=== PATIENT | female | born 1940 | race Caucasian/White ===

== ENCOUNTER 2016-07-29 10:19 | Day surgery (SDC) | payer MEDICARE, OTHER, MEDICAID ==
[~2016-07-29 10:19] MED LIST: ALDACTONE25 M1 PO; ASPIR 8181 M1 PO; COREG12.5 M1 PO; FEOSOL325 M1 PO; FOLIC ACID0.4 M1 PO; GLUCOPHAGE500 M3 PO; LANOXIN125 MC3 PO; LASIX40 M1 PO; LASIX80 M1 PO; LIPITOR20 M1 PO; OMEPRAZOLE20 M3 PO; POTASSIUM CHLO20 ME3 PO; PRADAXA75 M1 PO; PREDNISONE10 M1 PO; SYNTHROID88 MC1 PO; TRADJENTA5 M1 PO; ULTRAM50 MG
[2016-07-29] MEDS ORDERED: CLINDAMYCIN HC300 M2 PO (13:38)
[2016-07-30] MEDS ORDERED: OXYCODONE HCL5 M1 PO (10:05)
== END 2016-07-30 12:01 ==
LOC: SRG 10:19 → SHSC 10:26 → BURN 11:45
PROVIDERS: Surgery
PROC: 0Y6P0Z0 Detachment at Right 1st Toe, Complete, Open Approach (ICD-10-PCS; principal; 2016-07-29)
DX: M86.171 Other acute osteomyelitis, right ankle and foot (principal); M86.671 Other chronic osteomyelitis, right ankle and foot; I11.0 Hypertensive heart disease with heart failure; I50.9 Heart failure, unspecified; I25.10 Atherosclerotic heart disease of native coronary artery without angina pectoris; E11.9 Type 2 diabetes mellitus without complications; E03.9 Hypothyroidism, unspecified; K21.9 Gastro-esophageal reflux disease without esophagitis; J44.9 Chronic obstructive pulmonary disease, unspecified; F17.210 Nicotine dependence, cigarettes, uncomplicated; Z88.1 Allergy status to other antibiotic agents; Z88.8 Allergy status to other drugs, medicaments and biological substances; Z90.49 Acquired absence of other specified parts of digestive tract; Z98.41 Cataract extraction status, right eye; Z98.42 Cataract extraction status, left eye; Z85.72 Personal history of non-Hodgkin lymphomas; Z95.1 Presence of aortocoronary bypass graft; Z79.82 Long term (current) use of aspirin; Z79.899 Other long term (current) drug therapy; Z98.890 Other specified postprocedural states
CPT/HCPCS: G8978-GP-CK; G8979-GP-CK; G8980-GP-CK; G8987-GO-CJ; G8988-GO-CH; G8989-GO-CJ; J1815; J2250; J3260; J3370; J7512

== ENCOUNTER 2016-12-04 12:02 | Inpatient (IN) | payer MEDICARE, OTHER, MEDICAID ==
[~2016-12-04] VITALS: Ht 162.6 cm; Wt 58.2 kg
[~2016-12-04 12:02] MED LIST changes: +CLINDAMYCIN HC300 M2 PO; +OXYCODONE HCL5 M1 PO
[2016-12-04] MEDS ORDERED: PREDNISONE10 M1 PO (13:33)
[2016-12-04 14:20] LABS: BASO % 0.1 % (0-2); EOS % 0.1 % (0-7); HCT-HEMATOCRIT 36.5 % (34.0-49.0); HGB-HEMOGLOBIN 12.3 gm/dl (12.0-15.5); IMMATURE GRANULOCYTES ABSOLUTE 0.08 tho/cmm (0-0.03); IMMATURE GRANULOCYTES PERCENT 0.5 % (0-0.3); LYMPH % 4.2 % (20-45); LYMPH ABSOLUTE COUNT 0.7 tho/cmm (0.8-4.5); MCH (MEAN CORPUSCULAR HGB) 28.7 pg (28.0-32.0); MCHC MEAN CORPUSCULAR HGB CONC 33.7 % (32.0-36.0); MCV (MEAN CELL VOLUME) 85.3 fl (82.0-96.0); MEAN PLATELET VOLUME 9.1 cmc (9.4-12.4); MONO % 3.3 % (0-12); MONOCYTE ABSOLUTE COUNT 0.6 tho/cmm (0.0-1.2); NEUTROPHIL ABSOLUTE COUNT 15.6 tho/cmm (1.6-8.0); NEUTROPHIL-AUTOMATED 15.6 tho/cmm (1.6-8.0); NEUTROPHILS % 91.8 % (40-80); PLATELET COUNT 174 tho/cmm (150-450); RED BLOOD COUNT 4.28 mil/cmm (4.00-5.20); RED CELL DISTRIBUTION WIDTH 14.9 % (12.4-16.4)
[2016-12-04 14:26] LABS: INR 1.4 INR (0.9-1.1); PROTHROMBIN TIME 16.1 SECONDS (9.0-13.6)
[2016-12-04 14:36] LABS: ALB/GLOB RATIO 0.5 (0.8-2.0); ALBUMIN 2.5 g/dl (3.5-5.0); ALKALINE PHOSPHATASE 83 U/L (33-138); ALT/SGPT 22 U/L (12-78); ANION GAP 14 mmol/L (0-20); AST/SGOT 23 U/L (10-40); BLOOD UREA NITROGEN 30 mg/dl (6-24); CARBON DIOXIDE-VENOUS 27 mmol/L (22-32); CHLORIDE 99 mmol/l (96-110); CREATININE 1.58 mg/dl (0.50-1.10); GLUCOSE 196 mg/dL (70-110); POTASSIUM 3.8 mmol/L (3.7-5.1); PREALBUMIN 13.1 mg/dl (20.0-40.0); SODIUM 136 mmol/L (135-145); eGFR VALUE FOR BLACK 37 mL/Min
[2016-12-04 15:08] LABS: ABG CO2 ARTERIAL 25 mmol/L (21-27); ARTERIAL BLD GAS O2 SATURATION 94 % (95-98); ARTERIAL BLOOD GAS PCO2 36 mmHg (32-45); ARTERIAL PO2 68 mmHg (70-100); BICARBONATE 23 mmol/L (21-28); BLOOD GAS BASE EXCESS 0 mM/L (-/+3); PH 7.43 Units (7.35-7.45)
[2016-12-05 09:40] LABS: ANION GAP 14 mmol/L (0-20); BLOOD UREA NITROGEN 30 mg/dl (6-24); CALCIUM 8.2 mg/dl (8.5-10.5); CARBON DIOXIDE-VENOUS 24 mmol/L (22-32); CHLORIDE 105 mmol/l (96-110); CREATININE 1.69 mg/dl (0.50-1.10); GLUCOSE 103 mg/dL (70-110); POTASSIUM 3.6 mmol/L (3.7-5.1); SODIUM 139 mmol/L (135-145); eGFR VALUE FOR BLACK 34 mL/Min
[2016-12-07 07:45] LABS: BASO % 0.4 % (0-2); EOS % 1.1 % (0-7); EOSINOPHIL ABSOLUTE COUNT 0.1 tho/cmm (0.0-0.7); HCT-HEMATOCRIT 31.7 % (34.0-49.0); HGB-HEMOGLOBIN 10.5 gm/dl (12.0-15.5); IMMATURE GRANULOCYTES ABSOLUTE 0.04 tho/cmm (0-0.03); IMMATURE GRANULOCYTES PERCENT 0.5 % (0-0.3); LYMPH % 26.6 % (20-45); LYMPH ABSOLUTE COUNT 2.3 tho/cmm (0.8-4.5); MCHC MEAN CORPUSCULAR HGB CONC 33.1 % (32.0-36.0); MCV (MEAN CELL VOLUME) 84.5 fl (82.0-96.0); MEAN PLATELET VOLUME 9.2 cmc (9.4-12.4); MONO % 9.5 % (0-12); MONOCYTE ABSOLUTE COUNT 0.8 tho/cmm (0.0-1.2); NEUTROPHIL ABSOLUTE COUNT 5.3 tho/cmm (1.6-8.0); NEUTROPHIL-AUTOMATED 5.3 tho/cmm (1.6-8.0); NEUTROPHILS % 61.9 % (40-80); PLATELET COUNT 199 tho/cmm (150-450); RED BLOOD COUNT 3.75 mil/cmm (4.00-5.20); RED CELL DISTRIBUTION WIDTH 14.8 % (12.4-16.4); WHITE BLOOD COUNT 8.5 tho/cmm (4.0-10.0)
[2016-12-07 08:05] LABS: ANION GAP 10 mmol/L (0-20); BLOOD UREA NITROGEN 20 mg/dl (6-24); CALCIUM 7.6 mg/dl (8.5-10.5); CARBON DIOXIDE-VENOUS 23 mmol/L (22-32); CHLORIDE 110 mmol/l (96-110); CREATININE 1.44 mg/dl (0.50-1.10); GLUCOSE 101 mg/dL (70-110); POTASSIUM 3.4 mmol/L (3.7-5.1); SODIUM 140 mmol/L (135-145); eGFR VALUE FOR BLACK 41 mL/Min
[2016-12-07] MEDS ORDERED: CLEOCIN HCL300 M1 PO (14:36)
== END 2016-12-07 17:20 | disposition home health service (06) | DRG 639 ==
LOC: BURN 12:02
PROVIDERS: Family Medicine; Internal Medicine; Physician Assistant; ADMIT Surgery
DX: E11.9 Type 2 diabetes mellitus without complications (principal); I48.91 Unspecified atrial fibrillation; N18.3 Chronic kidney disease, stage 3 (moderate); I25.10 Atherosclerotic heart disease of native coronary artery without angina pectoris; M06.9 Rheumatoid arthritis, unspecified; I12.9 Hypertensive chronic kidney disease with stage 1 through stage 4 chronic kidney disease, or unspecified chronic kidney disease; E87.6 Hypokalemia
CPT/HCPCS: J1815; J2270; J2543; J7030; J7040; J7512; J7999